=== PATIENT | female | born 1945 | race Caucasian/White ===

== ENCOUNTER 2016-12-28 10:06 | Emergency (ER) | payer MEDICARE, OTHER | END 2016-12-28 12:57 | disposition home or self-care (01) | LOC: FER 10:06 | DX: S93.602A Unspecified sprain of left foot, initial encounter (principal); S40.021A Contusion of right upper arm, initial encounter; I10 Essential (primary) hypertension; E78.5 Hyperlipidemia, unspecified; W01.0XXA Fall on same level from slipping, tripping and stumbling without subsequent striking against object, initial encounter; Y92.009 Unspecified place in unspecified non-institutional (private) residence as the place of occurrence of the external cause | CPT/HCPCS: 70450; 73060; 73630 ==